=== PATIENT | male | born 1980 | race Caucasian/White ===

== ENCOUNTER → 2021-02-06 07:28 | Outpatient (CLI) | payer OTHER, SELFPAY ==
--- NOTE | ~2021-02-06 | MR_ITS ---
EXAMINATION: MR lumbar spine wo con DATE: 02/06/2021 08:28 INDICATION: Acute right-sided low back pain. Right-sided sciatica. TECHNIQUE: Magnetic resonance imaging (MRI) of the lumbar spine was performed without intravenous con trast. Sequences included sagittal T2-weighted FSE, sagittal T2-weighted FS FSE, sagittal T1-weighted FSE, and axial T2-weighted FSE. COMPARISON: None FINDINGS: There is 4 degrees dextrocurvature of thoracolumbar spine. Vertebral body heights are yael l. There is moderately decreased disc height at L4-L5 and L5-S1 with endplate remodeling. The distal spinal cord signal intensity is normal. The conus medullaris is at T12-L1. The following disc levels are specifically discussed: L1-L2: The disc does not extend beyond the endplate margin. There is mild bilateral facet joint osteo arthritis. There is no neural foraminal stenosis. There is no central canal stenosis. L2-L3: The disc does not extend beyond the endplate margin. There is mild bilateral facet joint osteo arthritis. There is no neural foraminal stenosis. There is no central canal stenosis. L3-L4: There is a left foraminal protrusion. There is mild bilateral facet joint osteoarthritis. Ther e is mild left neural foraminal stenosis. There is no central canal stenosis. L4-L5: The disc is bulging with superimposed right subarticular zone extrusion with mass effect on ri ght L5 nerve root. There is mild bilateral facet joint osteoarthritis. There is moderate bilateral ne ural foraminal stenosis. There is mild central canal stenosis. There is moderate stenosis of right la teral recess. L5-S1: The disc is bulging and has an annular fissure. There is mild bilateral facet joint osteoarthr itis. There is mild right and moderate left neural foraminal stenosis. There is mild central canal st enosis. IMPRESSION: 1. Moderate lower lumbar spondylosis. Of note, an extrusion at L4-L5 exerts mass effect on right L5 n erve root. Reviewed, dictated and finalized at location [facility]. ER[facility]OCKER IMPRESSION: 1. Moderate lower lumbar spondylosis. Of note, an extrusion at L4-L5 exerts mas s effect on right L5 nerve root.
== END ==
PROVIDERS: PCP Family Medicine; Visit Provider Physician Assistant
DX: M54.41 Lumbago with sciatica, right side (principal); M48.061 Spinal stenosis, lumbar region without neurogenic claudication; M51.36 Other intervertebral disc degeneration, lumbar region; M47.896 Other spondylosis, lumbar region
CPT/HCPCS: 72148

== ENCOUNTER 2024-09-27 08:44 | Outpatient (CLI) | payer BC, SELFPAY ==
--- NOTE | ~2024-09-27 | MR_ITS ---
MRI of the right elbow CLINICAL HISTORY: Pain TECHNIQUE: Proton-density and proton-density fat-sat imaging was performed in the axial, coronal, and sagittal planes. FINDINGS: Ulnar collateral ligament is intact. Radial collateral ligament and the lateral ulnar collateral ligament are intact. There is mild to moderate tendinosis of the common flexor tendon origin at the medial epicondyle of the humerus. There is mild tendinosis of the common extensor tendon origin. Bone marrow signals are unremarkable. No joint effusion. No articular modality the elbow seen. Biceps, brachialis, and triceps tendons are intact. Visualized musculature demonstrates normal signal intensity. No soft tissue mass or fluid collection seen. IMPRESSION: Moderate tendinosis of the common flexor tendon origin at the medial epicondyle of the humerus. Mild tendinosis of the common extensor tendon origin. Reviewed, dictated and finalized at [facility].
== END 2024-09-27 08:45 | disposition home or self-care (01) ==
DX: M77.01 Medial epicondylitis, right elbow (principal)
CPT/HCPCS: 73221